=== PATIENT | female | born 1995 | race Caucasian/White ===

== ENCOUNTER 2020-03-07 05:32 | Emergency (ER) | payer SELFPAY ==
[2020-03-07 05:34] VITALS: BP 105/69; PULSE 80; RESP 17; TEMP 36.9; O2SAT 100; BMI 17.9
[2020-03-07 06:13] VITALS: BP 102/60; PULSE 72; RESP 18; O2SAT 99
--- NOTE | 2020-03-07 06:18 | W.ED.PREGNAN ---
HPI - General: Chief complaint: OB/Uterine Contractions Stated complaint: 8-12 weeks /cramps Time Seen by Provider: 03/07/20 06:02 History of Present Illness: HPI Narrative: 25-year-old female presents to the emergency room with complaint of cramping. she reports she is 8 to 12 weeks gestation. She had cramping last night. She denies having any pain now. Patient is G1, P0 her LMP was 12/22/19. Patient is not having any symptoms now. Initial lab work was ordered based on her presenting complaint including a serum quantitative beta-hCG to evaluate patient is refusing all lab work insisting on ultrasound only. She denies any other illness at this time. Patient denies any respiratory problems. MD Complaint: vaginal bleeding Date of Last Menstrual Period: 12/27/19 Associated symptoms: Deny abdominal pain, dysuria, malaise, nausea or vomiting Review of Systems Const: Denies: fever(s), chills, body aches, change in appetite, fatigue or malaise ENMT: Denies: throat pain, ear or mastoid pain, nasal discharge or nasal congestion Card: Denies: chest pain, edema, dyspnea on exertion or orthopnea Resp: Denies: dyspnea, productive cough or non-productive cough GI: Denies: abdominal pain, nausea, vomiting, hematemesis, coffee ground emesis, diarrhea, constipation, bloating, hematochezia or melena : Denies: flank pain, difficulty voiding, dysuria, urinary frequency or urinary urgency Skin/Breast: Denies: rash or pruritus PFS ED PFSH: Surgical History (Updated 03/07/20 @ 06:31 by Devon Grigsby DO) Hx of appendectomy Social History (Updated 03/07/20 @ 06:31 by Devon Grigsby DO) Smoking and tobacco status: never smoked Alcohol intake: never Female Reproductive History: Date of last menstrual period: 12/27/19 Physical Exam Const: COMMON NORMALS: average body habitus, patient oriented x3 and alert GENERAL APPEARANCE: cooperative, comfortable, well kempt and well developed NUTRITIONAL APPEARANCE: obese ORIENTATION/CONSCIOUSNESS: Yes awake, Yes oriented to person and Yes oriented to place Eye: COMMON NORMALS: Equal, round and reactive pupils present, EOMs intact bilaterally, conjunctivae normal and no scleral icterus CONJUNCTIVA: Yes conjunctivae normal PUPIL: Yes Equal, round and reactive pupils present Neck/C-Spine: COMMON NORMALS: full ROM, no lymphadenopathy, supple, no meningeal signs and Thyroid normal THYROID: Thyroid normal and asymmetrical Lymph: LYMPHATIC: no lymphadenopathy noted Resp: COMMON NORMALS: normal respiratory effort, No retractions, No use of accessory muscles and clear to auscultation bilaterally AUSCULTATION: clear to auscultation bilaterally Cardio: COMMON NORMALS: regular rate and regular rhythm RATE: regular rate RHYTHM: regular rhythm HEART SOUNDS: no murmurs GI: COMMON NORMALS: Normal to inspection, nondistended, normoactive bowel sounds present, Soft to palpation and No hepatosplenomegaly present PALPATION: Yes Soft to palpation and Yes No hepatosplenomegaly present : COMMON NORMALS: Yes no CVA tenderness BLADDER/KIDNEY EXAM: Yes no CVA tenderness Back/Pelvis: COMMON NORMALS: no CVA tenderness LUMBAR SPINE/LOWER BACK: Yes normal to inspection Extremity: COMMON NORMALS: no clubbing, cyanosis or edema, no calf tenderness and no pedal edema Neuro: COMMON NORMALS: patient oriented x3 SENSORIUM/ORIENTATION: Yes alert, Yes oriented to person and Yes oriented to place MENINGEAL SIGNS: Yes no meningeal signs Psych: APPEARANCE: Yes well kempt Skin: COMMON NORMALS: no rashes or lesions noted and turgor normal GENERAL SKIN EXAM: no rashes or lesions noted and turgor normal Course Vital Signs: Vital signs: Vital Signs Temperature 98.4 F 03/07/20 05:34 Pulse Rate 72 03/07/20 06:13 Respiratory Rate 18 03/07/20 06:13 Blood Pressure 102/60 03/07/20 06:13 Pulse Oximetry 99 03/07/20 06:13 MDM - OB/Uterine Contractions MDM Narrative: Medical decision making narrative: Patient insistent that the only work she has done is an ultrasound. Advised her we would first need to have at least a serum or urine quantitative beta-hCG of prefer serum quantitative beta-hCG since she is having abdominal pain since we need to evaluate for whether or not she has intrauterine . Then we can decide what level of ultrasound would need to be done most appropriately. She is not okay with this and chooses to leave AGAINST MEDICAL ADVICE. Did advise her that if she has abdominal pain due to ectopic that could be potentially life-threatening she states she understands and wishes to leave AMA. Patient advised she is free to return to the emergency room at any point if she has worsening pain or problems or wishes to have it appropriate evaluation completed. Discharge Plan Discharge Patient Disposition: Left Against Medical Advice Clinical Impression: First trimester , Pelvic pain affecting Activity Restrictions/Additional Instructions: Patient advised she is free to return to the emergency room if she has any further problems. Interventions: ED Discharge Assessment Last Done: 03/07/20 06:31 ED Charges Last Done: 03/07/20 06:31 Discharge Date/Time: 03/07/20 06:32 Coding Level of Care Code ED Multimedia Journalist for Demondg Fwd Exam Comprehensive
--- NOTE | 2020-03-07 06:21 | PC.NURSE ---
Patient refusing labs until speaking with .
--- NOTE | 2020-03-07 06:29 | PC.NURSE ---
'Dr. Grigsby talked with patient and advised that the test that he ordered was needed to determine what was going on. Patient is going to leave AMA and not getting any of these tests. Dr. Grigsby advised patient of risks of leaving AMA and patient stated that she was not worried about all that and stated she would find a different doctor that would not require all these tests.
== END 2020-03-07 06:32 | disposition left against medical advice (07) ==
PROVIDERS: Emergency Provider Family Medicine
DX: O26.891 Other specified pregnancy related conditions, first trimester (principal); R10.2 Pelvic and perineal pain; Z3A.08 8 weeks gestation of pregnancy; Z53.21 Procedure and treatment not carried out due to patient leaving prior to being seen by health care provider
CPT/HCPCS: 12345; 96360; 99281; 99283

== ENCOUNTER 2020-03-13 00:08 | Emergency (ER) | payer SELFPAY ==
[2020-03-13 00:23] VITALS: BP 114/80; PULSE 68; RESP 14; TEMP 36.8; O2SAT 100; BMI 17.6
[2020-03-13 00:46] LABS: Add Urine Microscopic? NO
[2020-03-13 00:53] LABS: HCG Qualitative Urine. Positive (Negative); Urine Appearance Clear (CLEAR); Urine Color Straw (Yellow)
[2020-03-13 00:54] LABS: Bilirubin Urine Neg (NEGATIVE); Blood Urine Neg (Negative); Glucose Urine UA Norm (Normal); Ketones Urine Negative (Negative); Leukocyte Esterase Urine Negative (Negative); Nitrate Urine Negative (Negative); Protein Urine Neg (Negative); Specific Gravity, Urine 1.005 (1.005-1.030); Urobilinogen Urine Norm (Negative); pH Urine 5 (5-7)
--- NOTE | 2020-03-13 02:44 | USR_ITS ---
PROCEDURE INFORMATION: Exam: US First Trimester, Transabdominal Exam date and time: 03/13/2020 3:50 AM Age: 25 years old Clinical indication: complicated by abdominal or pelvic pain; Lower; First trimester; Gestational age or lmp: 8w1d; ; Additional info: Abd pain. Patient reportedly suspects approximately 12 weeks gestation. LMP 12/22/2019. The Patient reports abdominal pain for 1 week, no vaginal bleeding. TECHNIQUE: Imaging protocol: Real-time transabdominal obstetrical ultrasound of the maternal pelvis and a first trimester , less than 14 weeks 0 days, with image documentation. COMPARISON: CT No relevant prior studies available. FINDINGS: There is an intrauterine gestational sac, containing a yolk sac and small pole. [place] rump length of 16-17 mm, estimates gestational age of 8 weeks, 1 day. However, no heart activity is identified by the technologist, and no heart activity is identified on the provided M-mode images. heart activity should usually be identified by gestational age of approximately six weeks, and should definitely be identified with a crown-rump length of greater than 7 mm. Therefore, this appearance is felt to be most compatible with a missed AB/ demise. Very small cyst in the right ovary, measuring 10 x 5 x 9 mm mm, possibly corpus luteum. Maternal ovaries/adnexa otherwise appear essentially unremarkable. Blood flow detected in each ovary. The urinary bladder was not completely evaluated/imaged at this time. US/US OB <= 14 weeks fetus [id number] IMPRESSION: 1. Appearance compatible with a missed AB/ demise, see details above. 2. Other details discussed above.
[2020-03-13 03:08] LABS: Basophils % 0.3 %; Eosinophils # 0.1 10^3/uL (0.0-0.8); Eosinophils % 0.7 %; Hematocrit 31.3 % (37.0-47.0); Hemoglobin 10.8 g/dL (11.5-15.3); Lymphocytes # 2.6 10^3/uL (0.8-4.8); Lymphocytes % 36.9 %; Mean Corpuscular HGB Conc 34.5 g/dL (30.0-36.0); Mean Corpuscular Hemoglobin 30.6 pg (28.0-34.0); Mean Corpuscular Volume 88.7 fL (81-99); Monocytes # 0.7 10^3/uL (0.2-0.9); Monocytes % 9.3 %; Neutrophils # 3.75 10^3/uL (1.8-7.7); Neutrophils % 52.5 %; Nucleated Red Blood Cells % 0 %; Platelet Count 220 10^3/cmm (130-400); Red Blood Count 3.53 10^6/uL (4.1-5.3); Red Cell Distribution Width 11.6 % (12.1-15.1); White Blood Count 7.1 10^3/uL (4.0-10.0)
[2020-03-13 03:32] LABS: Alanine Aminotransferase 11 U/L (0-33); Albumin Level 4.6 g/dL (3.5-5.2); Alkaline Phosphatase 41 IU/L (35-105); Anion Gap 15.3 (5-19); Aspartate Amino Transferase 18 U/L (0-32); Blood Urea Nitrogen 5 mg/dL (6-20); Calcium 9.5 mg/dL (8.5-10.5); Carbon Dioxide 21 mmol/L (22-29); Chloride 103 mmol/L (98-107); Creatinine Clr Calc Pharmacy 168.2916; Globulin 2.7 g/dL (1.3-4.6); Glomerular Filtration Rate 194.5 mL/min (90-130); Glucose 79 mg/dL (65-115); Osmolality Calculated 277 mOsm/kg (285-295); Potassium 3.3 mmol/L (3.5-5.1); Sodium 136 mmol/L (136-145); Total Bilirubin 0.2 mg/dL (0.15-1.2); Total Protein 7.3 g/dL (6.6-8.7)
[2020-03-13 05:29] VITALS: BP 99/61
--- NOTE | 2020-03-13 05:51 | ED_ITS ---
HPI - Female Genitourinary General: Chief complaint: Urogenital-Female Stated complaint: preg/cramping Time Seen by Provider: 03/13/20 02:10 History of Present Illness: HPI Narrative: 25-year-old female, states that she had her last normal menstrual period around December 26. She has taken multiple tests at home that were positive. She complains of cramping pain for the past week or more. She is felt ill, and generally weak. She denies any fever. She has had a couple episodes of vomiting. She denies any vaginal bleeding or discharge. MD elicited complaint: pelvic pain and possible miscarriage Onset (ago): day(s) Location of symptoms: suprapubic Severity: moderate Female Urogenital Radiation: Non-Radiating Quality of pain: cramping Vaginal discharge: none Vaginal bleeding: none Relieving factors: none Associated symptoms: Reports abdominal pain and nausea; Deny short of breath, fevers/chills, headache(s), rash or seizures Patient : Yes Possible : at home test positive Date of Last Menstrual Period: 12/27/19 Review of Systems Const: Denies: fever(s) or chills Eyes: Denies: change in vision ENMT: Denies: swelling of lips/tongue, change in hearing, epistaxis, post nasal drip or sinus pain Card: Denies: chest pain, palpitations or irregular heart rhythm Resp: Denies: dyspnea, productive cough, non-productive cough or wheezing GI: Reports: abdominal pain and nausea : Denies: dysuria, urinary frequency, urinary urgency or hematuria Musc: Reports: back pain; Denies: neck pain, joint redness or joint warmth Skin/Breast: Denies: rash, pruritus or erythema Neuro: Denies: headache(s), dizziness, vertigo or confusion Psych: Denies: anxiety PFSH ED PFSH: Surgical History (Updated 03/07/20 @ 06:31 by Devon Grigsby DO) Hx of appendectomy Social History (Updated 03/07/20 @ 06:31 by Devon Grigsby DO) Smoking and tobacco status: never smoked Alcohol intake: never Female Reproductive History: Date of last menstrual period: 12/27/19 Physical Exam Const: GENERAL APPEARANCE: well developed ORIENTATION/CONSCIOUSNESS: Yes oriented to person, Yes oriented to place and Yes oriented to time HENMT: COMMON NORMALS: normocephalic, external ears normal and Normal external nose present HEAD & SCALP: normocephalic FACE & SINUS: normal facial exam NOSE: Normal external nose present and No nasal discharge present EXTERNAL EAR: Yes external ears normal THROAT: posterior oropharynx normal; no peritonsillar mass Eye: COMMON NORMALS: Equal, round and reactive pupils present, EOMs intact bilaterally and conjunctivae normal EYELID: eyelids normal CONJUNCTIVA: Yes conjunctivae normal PUPIL: Yes Equal, round and reactive pupils present Neck/C-Spine: GENERAL: No tracheal deviation Chest: COMMONS NORMALS: normal inspection of the chest CHEST: No tenderness Resp: COMMON NORMALS: clear to auscultation bilaterally EFFORT & INSPECTION: No tachypneic, No respiratory distress, No retractions, No uses accessory muscles and No tracheal deviation AUSCULTATION: clear to auscultation bilaterally, no rhonchi, no wheezes and lung sounds not diminished Cardio: COMMON NORMALS: regular rate and regular rhythm RATE: regular rate RHYTHM: regular rhythm HEART SOUNDS: no murmurs PERIPHERAL PULSES: radial pulses present GI: INSPECTION: No abdominal distension AUSCULTATION: No Hyperactive bowel sounds present and No Hypoactive bowel sounds present PALPATION: Yes Tenderness to palpation present (GI) (Suprapubic), No Guarding due to palpation present (GI) and No Rigid due to palpation Neuro: SENSORIUM/ORIENTATION: Yes oriented to person, Yes oriented to place and Yes oriented to time Psych: COMMON NORMALS: mental status grossly normal Skin: COMMON NORMALS: no rashes or lesions noted GENERAL SKIN EXAM: no rashes or lesions noted Course Consultations: Consultation #1: albino Vital Signs: Vital signs: Vital Signs Temperature 98.2 F 03/13/20 00:23 Pulse Rate 68 03/13/20 00:23 Respiratory Rate 14 03/13/20 00:23 Blood Pressure 99/61 03/13/20 05:29 Pulse Oximetry 100 03/13/20 00:23 MDM - Female [facility] Narrative: Medical decision making narrative: 25-year-old G1, P0 female at around 9 weeks by dates. She reports cramping pain over the last week and feeling ill. Her potassium is mildly low. Bicarbonate is mildly low. Hemoglobin is 10.8. No leukocytosis. Quantitative hCG is 219,000. By ultrasound she has a 8-week 1 day fetus with no cardiac activity. Indicating demise or incomplete/missed . I am concerned that her high beta- hCG and her low blood count. She is frail. Spoke with Dr. Berkowitz for close outpatient follow-up. She will call the clinic on Saturday for an appointment, and case management has been notified. Lab Data: Labs: Lab Results 03/13/20 03/13/20 03/13/20 Range/Units 00:35 00:35 02:50 WBC 7.1 (4.0-10.0) 10^3/ uL RBC 3.53 L (4.1-5.3) 10^6/u L Hgb 10.8 L (11.5-15.3) g/dL Hct 31.3 L (37.0-47.0) % MCV 88.7 (81-99) fL MCH 30.6 (28.0-34.0) pg MCHC 34.5 (30.0-36.0) g/dL RDW 11.6 L (12.1-15.1) % Plt Count 220 (130-400) 10^3/c mm MPV 11.0 H (7.4-10.4) fL Neut % (Auto) 52.5 % Lymph % (Auto) 36.9 % [place] % (Auto) 9.3 % Eos % (Auto) 0.7 % Baso % (Auto) 0.3 % Neut # (Auto) 3.75 (1.8-7.7) 10^3/u L Lymph # (Auto) 2.6 (0.8-4.8) 10^3/u L [place] # (Auto) 0.7 (0.2-0.9) 10^3/u L Eos # (Auto) 0.1 (0.0-0.8) 10^3/u L Baso # (Auto) 0.0 (0.0-0.1) 10^3/u L Nucleated RBC % (a uto) 0 % Nucleated RBCs # 0.0 /100WBC Sodium (136-145) mmol/L Potassium (3.5-5.1) mmol/L Chloride (98-107) mmol/L Carbon Dioxide (22-29) mmol/L Anion Gap (5-19) BUN (6-20) mg/dL Creatinine (0.5-0.9) mg/dL GFR Calculation (90-130) mL/min Glucose (65-115) mg/dL Calculated Osmolal ity (285-295) mOsm/k g Calcium (8.5-10.5) mg/dL Total Bilirubin (0.15-1.2) mg/dL AST (0-32) U/L ALT (0-33) U/L Alkaline Phosphata se (35-105) IU/L Total Protein (6.6-8.7) g/dL Albumin (3.5-5.2) g/dL Globulin (1.3-4.6) g/dL HCG, Qual Positive H (Negative) Ser , José Miguel i-Qnt mIU/mL Urine Color Straw (Yellow) Urine Appearance Clear (CLEAR) Urine pH 5 (5-7) Ur Specific Gravit y 1.005 (1.005-1.030) Urine Protein Neg (Negative) Urine Glucose (UA) Norm (Normal) Urine Ketones Negative (Negative) Urine Blood Neg (Negative) Urine Nitrate Negative (Negative) Urine Bilirubin Neg (NEGATIVE) Urine Urobilinogen Norm (Negative) mg/dL Ur Leukocyte Sivan ase Negative (Negative) Blood Type Rho(D) Type 03/13/20 03/13/20 Range/Units 02:50 02:50 WBC (4.0-10.0) 10^3/ uL RBC (4.1-5.3) 10^6/u L Hgb (11.5-15.3) g/dL Hct (37.0-47.0) % MCV (81-99) fL MCH (28.0-34.0) pg MCHC (30.0-36.0) g/dL RDW (12.1-15.1) % Plt Count (130-400) 10^3/c mm MPV (7.4-10.4) fL Neut % (Auto) % Lymph % (Auto) % [place] % (Auto) % Eos % (Auto) % Baso % (Auto) % Neut # (Auto) (1.8-7.7) 10^3/u L Lymph # (Auto) (0.8-4.8) 10^3/u L [place] # (Auto) (0.2-0.9) 10^3/u L Eos # (Auto) (0.0-0.8) 10^3/u L Baso # (Auto) (0.0-0.1) 10^3/u L Nucleated RBC % (a uto) % Nucleated RBCs # /100WBC Sodium 136 (136-145) mmol/L Potassium 3.3 L (3.5-5.1) mmol/L Chloride 103 (98-107) mmol/L Carbon Dioxide 21 L (22-29) mmol/L Anion Gap 15.3 (5-19) BUN 5 L (6-20) mg/dL Creatinine 0.4 L (0.5-0.9) mg/dL GFR Calculation 194.5 H (90-130) mL/min Glucose 79 (65-115) mg/dL Calculated Osmolal ity 277 L (285-295) mOsm/k g Calcium 9.5 (8.5-10.5) mg/dL Total Bilirubin 0.2 (0.15-1.2) mg/dL AST 18 (0-32) U/L ALT 11 (0-33) U/L Alkaline Phosphata se 41 (35-105) IU/L Total Protein 7.3 (6.6-8.7) g/dL Albumin 4.6 (3.5-5.2) g/dL Globulin 2.7 (1.3-4.6) g/dL HCG, Qual (Negative) Ser , José Miguel i-Qnt 284201.00 mIU/mL Urine Color (Yellow) Urine Appearance (CLEAR) Urine pH (5-7) Ur Specific Gravit y (1.005-1.030) Urine Protein (Negative) Urine Glucose (UA) (Normal) Urine Ketones (Negative) Urine Blood (Negative) Urine Nitrate (Negative) Urine Bilirubin (NEGATIVE) Urine Urobilinogen (Negative) mg/dL Ur Leukocyte Sivan ase (Negative) Blood Type O Positive Rho(D) Type Positive Discharge Plan Discharge Patient Disposition: Home, Self-Care Clinical Impression: Incomplete Condition: Stable Prescriptions: New Zofran 4 mg tablet 4 mg PO Q6H PRN (Reason: nausea and vomiting) Qty: 10 RF: 0 [place] 5-325 mg tablet 1 tab PO Q6H PRN (Reason: pain) Qty: 10 RF: 0 Discharge Orders: Discharge Order (Routine); Ordered 03/13/20 Ordered By: Ameya Montalvo Referrals: Ilia Berkowitz MD [Physician] - 1-3 days Discharge Diet: Advance as tolerated Discharge Activity: Increase activity as tolerated Patient Instructions: Spontaneous Miscarriage (ED) Activity Restrictions/Additional Instructions: Return for fever greater than 100. Return for vomiting liquids or medications despite treatment. Return for worsening belly pain despite treatment. Return for heavy bleeding, passing large clots, soaking more than 1 pad per hour for more than 3 to 4 hours. Follow-up with the [facility] by calling on Saturday. Tell them we spoke with Dr. Berkowitz. Coding Level of Care Code ED Value Stream Coach for Batsheva Solis
--- NOTE | 2020-03-14 08:37 | DCPLANNER ---
manager risk had message to schedule a follow up appointment for patient with [facility]. manager risk called the [facility], spoke with Ana, gave clinic patients information. Clinic will call rehabilitation caseworker and patient with appointment information.
--- NOTE | 2020-03-15 08:12 | DCPLANNER ---
Patient has a follow up appointment scheduled for Sunday, March 15, [address] at 9:[address] Berkowitz. Clinic will call patient with appointment information.
--- NOTE | 2020-03-16 15:11 | DCPLANNER ---
Patient did attend appointment scheduled for 03.15.20 with [facility].
== END 2020-03-13 06:00 | disposition home or self-care (01) ==
PROVIDERS: Emergency Provider Emergency Medicine
DX: O03.4 Incomplete spontaneous abortion without complication (principal)
CPT/HCPCS: 12345; 76801; 80053; 81003; 81025; 84702; 85025; 86900; 99282; 99283

== ENCOUNTER 2020-03-29 23:32 | Emergency (ER) | payer SELFPAY ==
[2020-03-29 23:37] VITALS: BP 110/72; PULSE 74; RESP 16; TEMP 37; O2SAT 100; BMI 17.6
--- NOTE | 2020-03-29 23:48 | ED_ITS ---
HPI - General: Chief complaint: Vaginal Bleeding Stated complaint: bleeding, dizzy Time Seen by Provider: 03/29/20 23:39 Source: patient Mode of arrival: ambulatory Limitations: no limitations History of Present Illness: HPI Narrative: Patient is a 25-year-old female here for evaluation of vaginal bleeding after taking Cytotec. Patient was seen in the emergency department on 03/13 and diagnosed with a missed/incomplete based on an ultrasound that showed- single intrauterine gestational sac with yolk sac and pole measuring 17 mm consistent with of 8 weeks and 1 day. No cardiac activity noted consistent with missed . Right ovarian simple cyst measuring 1 x 0.5 x 0.9 cm likely corpus luteum. Otherwise bilateral ovaries appear normal with blood flow Patient was scheduled OB follow-up and saw Dr. Berkowitz on 03/15. At that time patient had requested to try expectant management. She was evaluated by Dr. Hanna a week later and still requested expectant management. She was counseled on that visit on other treatment options including induction with Cytotec and D&C. She was told to contact the office next week if she had changed her mind on management. Patient tells me today that she was prescribed Cytotec and took this medication around 11 AM this afternoon. Patient tells me approximately 4 to 5 hours later she began having vaginal bleeding and passing clots/tissue. She reports minimal pelvic cramping. She tells me she did soak several pads however bleeding has seemed to improve upon arrival. Patient states she came to the ED because she was told she needed to for any bleeding that was heavier than 2 pads an hour. Complaint: vaginal bleeding Onset (ago): hour(s) Location: pelvis Severity: mild Quality: Cramping Relieving factors: none Exacerbating factors: medication (cytotec) Vaginal discharge: none Vaginal bleeding: heavy (subsided upon arrival ) and clots Date of Last Menstrual Period: 03/29/20 Associated symptoms: Deny abdominal pain, dysuria, nausea, vaginal discharge or vomiting Review of Systems Const: Denies: fever(s) GI: Denies: abdominal pain, nausea, vomiting, diarrhea or change in bowel habits : Reports: vaginal bleeding (with clots/tissue) and pelvic pain (very mild cramping); Denies: flank pain, difficulty voiding, dysuria, urinary frequency, urinary urgency, urinary hesitancy, hematuria, genital lesions, genital pruritis, vaginal odor or vaginal discharge Musc: Denies: back pain PFSH ED PFSH: Medical History (Updated 03/30/20 @ 00:31 by VIVIANA Marie) No pertinent past medical history Denies: hypertension, hypercholesterolemia, heart, lung, liver, thyroid problems, diabetes, DVT/PE. PCP: None Surgical History S/P appendectomy 2014---laparoscopic procedure performed in [facility] Family History Denies family history of Colon cancer Ovarian cancer Diabetes Clotting disorder Heart disease Hyperlipidemia Breast cancer Anesthesia complication Bleeding disorder Hypertension Uterine cancer Thyroid condition Stroke Social History Smoking and tobacco status: never smoked Alcohol intake: never Additional social history: - Tobacco Use: Denies current or past use Drug Use: Denies Alcohol Use: Has tried alcohol in the past but does not drink on a regular basis Work/Study Status: Currently unemployed. 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 Female Reproductive History: Date of last menstrual period: 03/29/20 Physical Exam Const: COMMON NORMALS: no acute distress, average body habitus, patient oriented x3, no limitations, healthy appearing, alert and well nourished GI: COMMON NORMALS: Normal to inspection, nondistended, normoactive bowel sounds present, Soft to palpation, No hepatosplenomegaly present and no masses PALPATION: Yes Soft to palpation, Yes Tenderness to palpation present (GI) (very mild lower abdominal/pelvic cramping ) and Yes No hepatosplenomegaly present : OB/EXTERNAL & SPECULUM: Deferred OB/external & speculum exam Neuro: COMMON NORMALS: patient oriented x3 SENSORIUM/ORIENTATION: Yes alert Course Vital Signs: Vital signs: Vital Signs Temperature 98.6 F 03/29/20 23:37 Pulse Rate 69 03/30/20 00:36 Respiratory Rate 16 03/30/20 00:36 Blood Pressure 87/53 03/30/20 00:36 Pulse Oximetry 99 03/30/20 00:36 MDM - OB/Uterine Contractions MDM Narrative: Medical decision making narrative: Patient tells me at this time her bleeding is minimal. She reports minimal pelvic cramping. Patient's H&H is higher today than it was on 03/13. hCG has decreased from 219,000 to 68,000. Will have patient follow-up with [facility] so they can assess for ongoing passage/completion of . Return to ED precautions given. Lab Data: Labs: Lab Results 03/29/20 03/29/20 Range/Units 23:40 23:40 WBC 8.8 (4.0-10.0) 10^3/ uL RBC 3.68 L (4.1-5.3) 10^6/u L Hgb 11.3 L (11.5-15.3) g/dL Hct 32.9 L (37.0-47.0) % MCV 89.4 (81-99) fL MCH 30.7 (28.0-34.0) pg MCHC 34.3 (30.0-36.0) g/dL RDW 11.7 L (12.1-15.1) % Plt Count 234 (130-400) 10^3/c mm MPV 11.6 H (7.4-10.4) fL Neut % (Auto) 55.3 % Lymph % (Auto) 33.4 % [place] % (Auto) 10.2 % Eos % (Auto) 0.6 % Baso % (Auto) 0.3 % Neut # (Auto) 4.86 (1.8-7.7) 10^3/u L Lymph # (Auto) 2.9 (0.8-4.8) 10^3/u L [place] # (Auto) 0.9 (0.2-0.9) 10^3/u L Eos # (Auto) 0.1 (0.0-0.8) 10^3/u L Baso # (Auto) 0.0 (0.0-0.1) 10^3/u L Nucleated RBC % (a uto) 0 % Nucleated RBCs # 0.0 /100WBC Ser , José Miguel i-Qnt 43144.00 mIU/mL Discharge Plan Discharge Patient Disposition: Home Clinical Impression: Missed ab Condition: Stable Prescriptions: No Action misoprostol [Cytotec] 200 mcg tablet 600 mcg PO ONCE Qty: 3 RF: 0 Discharge Orders: Discharge Order (Routine); Ordered 03/30/20 Ordered By: Janey Arias Activity Restrictions/Additional Instructions: As discussed you need to contact the women's health clinic to schedule a follow- up visit as soon as possible so they can continue to monitor the progress of your miscarriage. Return to the emergency department for worsening vaginal bleeding, cramping, fevers greater than 100.4, generally feeling ill, or any other concerns you may have. Coding Level of Care Code ED Hotel Baggage Handler for Chg Fwd Exam Expanded Problem Focused
[2020-03-29 23:52] VITALS: BP 102/64; PULSE 69; RESP 16; O2SAT 97
[2020-03-30 00:05] LABS: Basophils % 0.3 %; Eosinophils # 0.1 10^3/uL (0.0-0.8); Eosinophils % 0.6 %; Hematocrit 32.9 % (37.0-47.0); Hemoglobin 11.3 g/dL (11.5-15.3); Lymphocytes # 2.9 10^3/uL (0.8-4.8); Lymphocytes % 33.4 %; Mean Corpuscular HGB Conc 34.3 g/dL (30.0-36.0); Mean Corpuscular Hemoglobin 30.7 pg (28.0-34.0); Mean Corpuscular Volume 89.4 fL (81-99); Mean Platelet Volume 11.6 fL (7.4-10.4); Monocytes # 0.9 10^3/uL (0.2-0.9); Monocytes % 10.2 %; Neutrophils # 4.86 10^3/uL (1.8-7.7); Neutrophils % 55.3 %; Nucleated Red Blood Cells % 0 %; Platelet Count 234 10^3/cmm (130-400); Red Blood Count 3.68 10^6/uL (4.1-5.3); Red Cell Distribution Width 11.7 % (12.1-15.1); White Blood Count 8.8 10^3/uL (4.0-10.0)
[2020-03-30 00:36] VITALS: BP 87/53; PULSE 69; RESP 16; O2SAT 99
[2020-03-30 00:37] VITALS: BP 90/59; PULSE 70; RESP 16; O2SAT 100
--- NOTE | 2020-03-30 08:21 | PC.SOCIAL ---
[facility] Called Clinic and spoke to Yolande who indicates she will send Dr Hanna a message and they will call patient with appt.
--- NOTE | 2020-04-07 15:17 | DCPLANNER ---
software development project manager called [facility], spoke with Jyoti to confirm if an appointment had been scheduled for patient. software development project manager was told that an appointment had been scheduled for patient, but when patient was called to review appointment information, patient wanted to cancel the appointment.
== END 2020-03-30 00:38 | disposition home or self-care (01) ==
PROVIDERS: Emergency Medicine; Emergency Provider Physician Assistant
DX: O02.1 Missed abortion (principal)
CPT/HCPCS: 12345; 36415; 84702; 85025; 99281; 99282

== ENCOUNTER 2020-04-26 17:19 | Emergency (ER) | payer SELFPAY ==
[2020-04-26 17:50] VITALS: BP 119/77; PULSE 70; RESP 18; TEMP 36.9; O2SAT 100; BMI 16.5
--- NOTE | 2020-04-26 18:03 | USR_ITS ---
PROCEDURE INFORMATION: Exam: US Nonobstetric Pelvis; Complete Exam date and time: 04/26/2020 8:23 PM Age: 25 years old Clinical indication: Pelvic pain; Patient HX: Recent miscarriage; Additional info: Vaginal bleeding and cramping TECHNIQUE: Imaging protocol: Transabdominal pelvic nonobstetric ultrasound. Complete exam. Real time ultrasound with image documentation. COMPARISON: CT abdomen pelvis w con* [id number] 04/08/2018 10:22 PM FINDINGS: Uterus/cervix: The uterus measures 11.4 x 5.3 x 6.1 cm. Inhomogenous thickening of the endometrium measuring up to 2.5 cm in the mid and lower uterine segment and a 5 mm cystic structure. There is increased vascularity within the uterus. Right adnexa: The right ovary measures 2.4 x 1.1 x 2.2 cm with normal Doppler flow. Left adnexa: The left ovary measures 1.8 x 2.7 x 2.9 cm with normal Doppler flow. Intraperitoneal space: Trace physiologic fluid. Bladder: Normal. US/US pelvic complete* [id number] IMPRESSION: 1. Inhomogenous material within the endometrial cavity, a 5 mm cystic structure, and increased vascularity in the uterus. This is suspicious for retained products of conception. Clinical correlation with quantitative beta HCG values is recommended.
--- NOTE | 2020-04-26 18:06 | ED_ITS ---
HPI - Abdominal Pain General: Chief Complaint: Abdominal Pain Stated Complaint: abd pain and bleeding Time Seen by Provider: 04/26/20 18:01 History of Present Illness: HPI narrative: Patient is a 25-year-old female who comes to the ED with vaginal bleeding and cramping.patient had a miscarriage back on March 22. Patient was sent home with a Cytotec induction med to progress miscarriage. Patient took Cytotec induction agent and soon after taking its bleeding and abdominal cramping started. Patient was seen here in the ED on March 29 for bleeding and miscarriage and was discharged and told to follow-up with her OB doctor to reassess completion of miscarriage. Patient says that she stopped bleeding a couple days after being discharged from the ED and she felt fine. She has not had any follow-up with her OB doctor since the ED visit. she then said approximately 12 days ago she started having some bleeding and abdominal pain and cramping. It started off light and mild and has progressed and gotten heavier and heavier. She says she has passed several large clots and is constantly bleeding through heavy pads every 15 minutes for the past couple days. Patient rates her pain as a 10 out of 10 and it is episodic. Denies any fever, chills, nausea or vomiting, bladder or bowel symptoms. Associated Symptoms: Denies chills, constipation, diarrhea, dysuria, fever(s), hematochezia, hematuria, nausea and vomiting Related Data: Date of Last Menstrual Period: 04/26/20 Review of Systems 2 Const: Denies: fever(s), chills or fatigue Eyes: Denies: change in vision or eye discomfort ENMT: Denies: throat pain, odynophagia, nasal discharge or nasal congestion Card: Denies: chest pain, palpitations, edema, swelling of feet/ankles, dyspnea on exertion or orthopnea Resp: Denies: dyspnea, productive cough or non-productive cough GI: Reports: abdominal pain (lower abdominal cramping); Denies: nausea, vomiting, diarrhea, constipation or hematochezia : Reports: vaginal bleeding and pelvic pain; Denies: flank pain, dysuria or hematuria Musc: Denies: neck pain, back pain or extremity swelling Skin/Breast: Denies: rash or new lesions Neuro: Denies: headache(s), numbness in extremities or weakness in extremities PFS ED PFSH: Medical History No pertinent past medical history Denies: hypertension, hypercholesterolemia, heart, lung, liver, thyroid problems, diabetes, DVT/PE. PCP: None Surgical History S/P appendectomy 2015---laparoscopic procedure performed in [facility] Family History Denies family history of Colon cancer Ovarian cancer Diabetes Clotting disorder Heart disease Hyperlipidemia Breast cancer Anesthesia complication Bleeding disorder Hypertension Uterine cancer Thyroid condition Stroke Social History Smoking and tobacco status: never smoked Alcohol intake: never Additional social history: - Tobacco Use: Denies current or past use Drug Use: Denies Alcohol Use: Has tried alcohol in the past but does not drink on a regular basis Work/Study Status: Currently unemployed. 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 Female Reproductive History: Date of last menstrual period: 04/26/20 Physical Exam Const: COMMON NORMALS: patient oriented x3, healthy appearing and alert GENERAL APPEARANCE: cooperative and in distress (Patient is having episodes of very intense pain) HENMT: COMMON NORMALS: normocephalic HEAD & SCALP: normocephalic MOUTH: Normal oral and palatal mucosa present THROAT: posterior oropharynx normal and uvula midline Eye: COMMON NORMALS: Equal, round and reactive pupils present PUPIL: Yes Equal, round and reactive pupils present Neck/C-Spine: COMMON NORMALS: supple GENERAL: Yes normal visual inspection Resp: COMMON NORMALS: normal respiratory effort, No retractions, No use of accessory muscles and clear to auscultation bilaterally AUSCULTATION: clear to auscultation bilaterally Cardio: COMMON NORMALS: regular rate, regular rhythm, S1 normal heart sound present, S2 normal heart sound present, No gallops present (Cardio), No clicks present (Cardio), No murmurs present (Cardio) and Peripheral pulses 2+ throughout RATE: regular rate RHYTHM: regular rhythm HEART SOUNDS: S1 normal heart sound present and S2 normal heart sound present PERIPHERAL PULSES: Peripheral pulses 2+ throughout GI: COMMON NORMALS: Normal to inspection, nondistended, normoactive bowel sounds present, Soft to palpation, non-tender and no masses PALPATION: Yes Soft to palpation : COMMON NORMALS: Yes no CVA tenderness BLADDER/KIDNEY EXAM: Yes no CVA tenderness Back/Pelvis: COMMON NORMALS: no CVA tenderness Extremity: COMMON NORMALS: normal to inspection and no pedal edema Neuro: COMMON NORMALS: patient oriented x3 SENSORIUM/ORIENTATION: Yes alert GAIT: Yes Normal gait present Skin: COMMON NORMALS: no rashes or lesions noted GENERAL SKIN EXAM: no rashes or lesions noted and dry skin Course Reevaluation(s): Reevaluation #1: I went and checked on patient to see how pain was doing. Patient was still having episodes of intense abdominal cramping and still having vaginal bleeding and discharge. Patient reports clots clots discharging as well. Time: 19:33 Reevaluation #2: Patient says she passed a larger clot and ever since then her pain has improved greatly.. Time: 20:00 Reevaluation #3: I went in and spoke with patient after Dr. Gillespie saw patient. Dr. Gillespie is good with patient being discharged and having follow-up with Dr. Hanna tomorrow. Dr. Gillespie saw some of the contents that patient passed vaginally while here in the ED. He thought she passed the gestational sac and was okay with patient having close follow-up and can be reevaluated within the next couple days to make sure all contents have been passed. Time: 21:14 Consultations: Consultation #1: I contacted Dr. Gillespie the on-call OB doctor and talk with him about patient's case, labs and ultrasound findings. Dr. Gillespie said he would like to come to the ED and see patient for himself and then he would make on what to do next. Time: 20:33 Vital Signs: Vital signs: Vital Signs Temperature 98.4 F 04/26/20 17:50 Pulse Rate 94 04/26/20 21:32 Respiratory Rate 18 04/26/20 21:32 Blood Pressure 105/63 04/26/20 21:32 Pulse Oximetry 96 04/26/20 21:32 MDM - Abdominal Pain MDM Narrative: Medical decision making narrative: Patient is a 25-year-old female comes to the ED with abdominal pain and vaginal bleeding. Patient had a miscarriage on 03/22 and was given Cytotec induction agent. Patient had a week of bleeding and then it stopped. In the last 12 days patient started having bl eeding again and the bleeding got heavier in the abdominal pain got more severe. Physical exam showed a patient having episodic abdominal cramping pain and she is bleeding through her pants. White blood cell count 10.3, hemoglobin 11.8. hCG is positive and hCG quant was 6125. Her last hCG quant was on 03/29 and it was 268[address]. Ultrasound showed retained products of conception. I contacted Dr. Gillespie and told him about patient and he decided to come into the ED and evaluate the patient himself. After visiting patient Dr. Gillespie thought patient could go home and follow-up with Dr. Hanna tomorrow. Patient's pain is gotten a lot better after she passed a large clot that was possibly gestational sac and sent to lab for testing. Patient was discharged and told to follow-up with Dr. Hanna tomorrow. Patient understood and agreed with plan. Return to ED precautions given. Lab Data: Attestation: I reviewed the patient's lab results. Labs: Lab Results 04/26/20 04/26/20 04/26/20 Range/Units 18:29 18:29 18:29 WBC 10.3 H (4.0-10.0) 10^3/ uL RBC 3.76 L (4.1-5.3) 10^6/u L Hgb 11.8 (11.5-15.3) g/dL Hct 33.9 L (37.0-47.0) % MCV 90.2 (81-99) fL MCH 31.4 (28.0-34.0) pg MCHC 34.8 (30.0-36.0) g/dL RDW 12.0 L (12.1-15.1) % Plt Count 256 (130-400) 10^3/c mm MPV 11.0 H (7.4-10.4) fL Neut % (Auto) 72.7 % Lymph % (Auto) 18.8 % Hamilton % (Auto) 7.5 % Eos % (Auto) 0.3 % Baso % (Auto) 0.3 % Neut # (Auto) 7.52 (1.8-7.7) 10^3/u L Lymph # (Auto) 1.9 (0.8-4.8) 10^3/u L Hamilton # (Auto) 0.8 (0.2-0.9) 10^3/u L Eos # (Auto) 0.0 (0.0-0.8) 10^3/u L Baso # (Auto) 0.0 (0.0-0.1) 10^3/u L Nucleated RBC % (a uto) 0 % Nucleated RBCs # 0.0 /100WBC Sodium 137 (136-145) mmol/L Potassium 3.7 (3.5-5.1) mmol/L Chloride 101 (98-107) mmol/L Carbon Dioxide 23 (22-29) mmol/L Anion Gap 16.7 (5-19) BUN 6 (6-20) mg/dL Creatinine 0.4 L (0.5-0.9) mg/dL GFR Calculation 194.5 H (90-130) mL/min Glucose 107 (65-115) mg/dL Calculated Osmolal ity 280 L (285-295) mOsm/k g Calcium 9.7 (8.5-10.5) mg/dL Total Bilirubin 0.3 (0.15-1.2) mg/dL AST 21 (0-32) U/L ALT 11 (0-33) U/L Alkaline Phosphata se 61 (35-105) IU/L Total Protein 7.9 (6.6-8.7) g/dL Albumin 4.8 (3.5-5.2) g/dL Globulin 3.1 (1.3-4.6) g/dL HCG, Qual Positive H (Negative) Ser , José Miguel i-Qnt 6125.00 mIU/mL Blood Type Rho(D) Type Antibody Screen 04/26/20 Range/Units 18:29 WBC (4.0-10.0) 10^3/ uL RBC (4.1-5.3) 10^6/u L Hgb (11.5-15.3) g/dL Hct (37.0-47.0) % MCV (81-99) fL MCH (28.0-34.0) pg MCHC (30.0-36.0) g/dL RDW (12.1-15.1) % Plt Count (130-400) 10^3/c mm MPV (7.4-10.4) fL Neut % (Auto) % Lymph % (Auto) % Hamilton % (Auto) % Eos % (Auto) % Baso % (Auto) % Neut # (Auto) (1.8-7.7) 10^3/u L Lymph # (Auto) (0.8-4.8) 10^3/u L Hamilton # (Auto) (0.2-0.9) 10^3/u L Eos # (Auto) (0.0-0.8) 10^3/u L Baso # (Auto) (0.0-0.1) 10^3/u L Nucleated RBC % (a uto) % Nucleated RBCs # /100WBC Sodium (136-145) mmol/L Potassium (3.5-5.1) mmol/L Chloride (98-107) mmol/L Carbon Dioxide (22-29) mmol/L Anion Gap (5-19) BUN (6-20) mg/dL Creatinine (0.5-0.9) mg/dL GFR Calculation (90-130) mL/min Glucose (65-115) mg/dL Calculated Osmolal ity (285-295) mOsm/k g Calcium (8.5-10.5) mg/dL Total Bilirubin (0.15-1.2) mg/dL AST (0-32) U/L ALT (0-33) U/L Alkaline Phosphata se (35-105) IU/L Total Protein (6.6-8.7) g/dL Albumin (3.5-5.2) g/dL Globulin (1.3-4.6) g/dL HCG, Qual (Negative) Ser , José Miguel i-Qnt mIU/mL Blood Type O Positive Rho(D) Type Positive Antibody Screen Negative Imaging Data ^: US OB: Attestation: I personally reviewed and interpreted this imaging study as follows: Radiologist's impression: [address] [address] Ultrasound Report Signed Patient: Ginny Wheatley Unit #: [id number] : [id number] Age/Sex: 25 / F ADM Date: 04/26/20 Loc: ER Room/Bed: Attending Dr: Ordering Provider/Ordering MD: Navarro Sims Date of Service: 04/26/20 Procedure(s): US pelvic complete* [id number] Accession Number(s): [id number] Report Number: [id number] PROCEDURE INFORMATION: Exam: US Nonobstetric Pelvis; Complete Exam date and time: 04/26/2020 8:23 PM Age: 25 years old Clinical indication: Pelvic pain; Patient HX: Recent miscarriage; Additional info: Vaginal bleeding and cramping TECHNIQUE: Imaging protocol: Transabdominal pelvic nonobstetric ultrasound. Complete exam. Real time ultrasound with image documentation. COMPARISON: CT abdomen pelvis w con* [id number] 04/08/2018 10:22 PM FINDINGS: Uterus/cervix: The uterus measures 11.4 x 5.3 x 6.1 cm. Inhomogenous thickening of the endometrium measuring up to 2.5 cm in the mid and lower uterine segment and a 5 mm cystic structure. There is increased vascularity within the uterus. Right adnexa: The right ovary measures 2.4 x 1.1 x 2.2 cm with normal Doppler flow. Left adnexa: The left ovary measures 1.8 x 2.7 x 2.9 cm with normal Doppler flow. Intraperitoneal space: Trace physiologic fluid. Bladder: Normal. US/US pelvic complete* [id number] IMPRESSION: 1. Inhomogenous material within the endometrial cavity, a 5 mm cystic structure, and increased vascularity in the uterus. This is suspicious for retained products of conception. Clinical correlation with quantitative beta HCG values is recommended. Dictated By: Merlin Goodwin Signed By: Merlin Goodwin Signed Date/Time: 04/26/202047 DD/ 45 Discharge Plan Discharge Patient Disposition: Home Clinical Impression: Incomplete Condition: Stable Prescriptions: No Action No Known Home Medications RF: 0 Discharge Orders: Discharge Order (Routine); Ordered 04/26/20 Ordered By: Navarro Sims Discharge Diet: Regular Discharge Activity: Increase activity as tolerated Patient Instructions: Spontaneous Miscarriage (ED) Activity Restrictions/Additional Instructions: Follow-up with medical provider as directed by Dr. Gillespie. Contact Dr. Hanna tomorrow to set up a follow up appointment. Take ibuprofen or Tylenol for pain. Return to the ER or your medical provider if condition worsens. Please read and understand discharge instructions. If any questions, please ask. Discharge Date/Time: 04/26/20 21:34 Coding Level of Care Code ED Cost Control Specialist for Chg Fwd Exam Comprehensive
[2020-04-26] MEDS: sodium chloride 0.9% 1,000 ML 999 ML IV (18:37)
[2020-04-26] MEDS: ondansetron 2 mg/ML SDV 2 mL 4 MG IVP (18:38)
[2020-04-26 18:39] VITALS: RESP 19
[2020-04-26] MEDS: morphine 4 mg/mL SDV 1 mL IVP (18:39)
[2020-04-26 18:42] VITALS: PULSE 75; RESP 18; O2SAT 100
[2020-04-26 18:49] LABS: Basophils % 0.3 %; Eosinophils % 0.3 %; Hematocrit 33.9 % (37.0-47.0); Hemoglobin 11.8 g/dL (11.5-15.3); Lymphocytes # 1.9 10^3/uL (0.8-4.8); Lymphocytes % 18.8 %; Mean Corpuscular HGB Conc 34.8 g/dL (30.0-36.0); Mean Corpuscular Hemoglobin 31.4 pg (28.0-34.0); Mean Corpuscular Volume 90.2 fL (81-99); Monocytes # 0.8 10^3/uL (0.2-0.9); Monocytes % 7.5 %; Neutrophils # 7.52 10^3/uL (1.8-7.7); Neutrophils % 72.7 %; Nucleated Red Blood Cells % 0 %; Platelet Count 256 10^3/cmm (130-400); Red Blood Count 3.76 10^6/uL (4.1-5.3); White Blood Count 10.3 10^3/uL (4.0-10.0)
[2020-04-26 18:55] LABS: HCG, Serum Qual Positive (Negative)
[2020-04-26 19:09] LABS: Alanine Aminotransferase 11 U/L (0-33); Albumin Level 4.8 g/dL (3.5-5.2); Alkaline Phosphatase 61 IU/L (35-105); Anion Gap 16.7 (5-19); Aspartate Amino Transferase 21 U/L (0-32); Blood Urea Nitrogen 6 mg/dL (6-20); Calcium 9.7 mg/dL (8.5-10.5); Carbon Dioxide 23 mmol/L (22-29); Chloride 101 mmol/L (98-107); Globulin 3.1 g/dL (1.3-4.6); Glomerular Filtration Rate 194.5 mL/min (90-130); Glucose 107 mg/dL (65-115); Osmolality Calculated 280 mOsm/kg (285-295); Potassium 3.7 mmol/L (3.5-5.1); Sodium 137 mmol/L (136-145); Total Bilirubin 0.3 mg/dL (0.15-1.2); Total Protein 7.9 g/dL (6.6-8.7)
[2020-04-26 19:19] VITALS: RESP 24
[2020-04-26] MEDS: morphine 4 mg/mL SDV 1 mL 2 MG IVP (19:19)
--- NOTE | 2020-04-26 21:12 | PM.OBGYCN ---
Providers/Reason for Consult Consulting Physican/Specialty*: Morgan Gillespie MD, sales porter Reason for Consult*: Incomplete miscarriage Primary YARD ENGINEER: Dr. Anabell Hanna YARD ENGINEER Consult HPI History of Present Illness Ginny Wheatley is a 25 year old female, 1, para 0 with an LMP of 12/22/2019 and an EDC of 09/27/2020, which placed her at 18-0/7 weeks gestation today. Patient had been evaluated in the ER on 03/13/2020 by ultrasound due to cramping and was found to have a demise. She was 11-5/7 weeks gestation at that time by LMP with an 8-1/7-week size fetus with no cardiac activity noted on ultrasound. She was seen in the office by Dr. Berkowitz on 03/15/2020 and given the options of D&C, medications to bring on the miscarriage, or expectant management. Patient had decided at that time to wait and see if things would pass on their own. She followed up in the office on 03/[address] Hanna and at that time, nothing had passed. Options were again discussed with her and she decided to wait another week to see if it would pass. She contacted the office on 03/28, and had still not passed the . At that point, she decided she wanted to try medications. Dr. Hanna prescribed 600 mcg of Cytotec orally, which patient took on 03/28. She then presented to the ER on 03/29 reporting heavy bleeding. Quantitative hCG had dropped by that time and it was felt that she most likely had passed the . She stated the bleeding eventually stopped. She reported that she started having bleeding again on 04/14 which was period-like in amount and as a result she thought she started her period at that time. She stated that her bleeding had continued and became heavier this evening. She also reported that she started cramping this afternoon and it was so bad that she decided to come to the ER. Patient reports that while in the ER, she passed out a bunch of clots and a saclike structure. This was prior to the ultrasound. She stated that she had put this in the trash in her room. She stated the bleeding had slowed following this and that her pain had almost gone away. At this point, she is requesting to go home. Review of Systems Const: Denies: fever(s) or chills ENMT: Denies: throat pain or nasal congestion Card: Denies: chest pain, palpitations or lightheadedness Resp: Denies: dyspnea, productive cough, non-productive cough or wheezing GI: Reports: abdominal pain; Denies: nausea or vomiting : Reports: vaginal bleeding; Denies: dysuria or genital pruritis Musc: Reports: back pain (low) Neuro: Denies: dizziness Psych: Denies: anxiety or depression Wilfredo/Lymph: Denies: easy bruising or easy bleeding Meds/Allergies Home Medications and Allergies Home Medications Medication Instructions Recorded Confirmed Last Taken Type No Known Home Medications 04/26/20 04/26/20 Unknown History Allergies Allergy/AdvReac Type Severity Reaction Status Date / Time No Known Allergies Allergy Verified 04/26/20 20:44 PFSH YARD ENGINEER PFSH: Medical History No pertinent past medical history Denies: hypertension, hypercholesterolemia, heart, lung, liver, thyroid problems, diabetes, DVT/PE. PCP: None Surgical History S/P appendectomy 2014---laparoscopic procedure performed in [facility] Family History Denies family history of Colon cancer Ovarian cancer Diabetes Clotting disorder Heart disease Hyperlipidemia Breast cancer Anesthesia complication Bleeding disorder Hypertension Uterine cancer Thyroid condition Stroke Social History Smoking and tobacco status: never smoked Alcohol intake: never Additional social history: - Tobacco Use: Denies current or past use Drug Use: Denies Alcohol Use: Has tried alcohol in the past but does not drink on a regular basis Work/Study Status: Currently unemployed. 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 Other Female Reproductive History: Hx Age of Menarche: 12 Vitals/I&O/Wt Last Vital Signs Temp 98.4 F 04/26/20 17:50 Pulse 75 04/26/20 18:42 Resp 24 H 04/26/20 19:19 BP 119/77 04/26/20 17:50 Pulse Ox 100 04/26/20 18:42 Weight last 48 hrs Weight 90 lb Physical Exam Const: COMMON NORMALS: no acute distress, average body habitus, alert and well nourished GENERAL APPEARANCE: well developed ORIENTATION/CONSCIOUSNESS: Yes oriented to person, Yes oriented to place and Yes oriented to time Neck/C-Spine: COMMON NORMALS: Thyroid normal GENERAL: Yes trachea midline THYROID: Thyroid normal Resp: COMMON NORMALS: normal respiratory effort and clear to auscultation bilaterally AUSCULTATION: clear to auscultation bilaterally Cardio: COMMON NORMALS: regular rate, regular rhythm, No gallops present (Cardio), No murmurs present (Cardio) and No rub (Cardio) RATE: regular rate RHYTHM: regular rhythm GI: COMMON NORMALS: Soft to palpation, No hepatosplenomegaly present and no masses AUSCULTATION: Yes normoactive bowel sounds PALPATION: Yes Soft to palpation, Yes Tenderness to palpation present (GI) (Minimal suprapubic), Yes No hepatosplenomegaly present and No Hernia present : EXTERNAL FEMALE EXAM: No Hernia present Neuro: SENSORIUM/ORIENTATION: Yes alert, Yes oriented to person, Yes oriented to place and Yes oriented to time Psych: COMMON NORMALS: normal affect MOOD & AFFECT: Yes euthymic mood Data Micro: Micro: Microbiology 04/26/20 18:29 Blood Culture - Pr eliminary Blood SPECIMEN [facility] Imaging^: US OB: I personally reviewed and interpreted this imaging study as follows: My impression: Thickened endometrial lining with nonuniform appearance. Hypoechoic area within the cervix region. Compared to prior ultrasound from 03/13/2020, no gestational sac seen. Other Data: Other data: I inspected the tissue that patient had passed. This consisted of a gestational sac with what appeared to be placental tissue along the surface of the sac. The sac was intact. A&P Assessment and plan (1) Complete spontaneous : Patient originally had a missed which was treated with Cytotec on 03/28. Patient thought she had passed the at that time. Based upon findings today, she had not passed the , but has now completed the miscarriage. The second lining at this point most likely represents the typical appearance of the endometrial lining. Since her bleeding has significantly slowed per her report and her cramping is essentially gone, I do not feel that any further treatment is needed at this time. Patient may be discharged to home. I recommend that she contact our office tomorrow morning on 04/[address] Hanna wants to follow-up with her. Questions were answered. Patient is in agreement with this plan of care. Status: Acute Coding Level of Care Code Acute Outside Repairer Special for Chg Fwd Diagnoses Complete spontaneous O03.9
[2020-04-26 21:32] VITALS: BP 105/63; PULSE 94; RESP 18; O2SAT 96
--- NOTE | 2020-04-26 23:15 | PC.NURSE ---
pt still rates pain 10/10, intermittent cramping not alleviated with meds or positioning. MULTIMEDIA AUTHORING SPECIALIST notified. 2mg of morphine adm via IV. Pt still rating pain 10/10. After 20 min of monitoring, pt states she has passed a large clot or something , but now reports no pain. Per Dr Gillespie, pt has passed the placenta, requesting studies to be done on placenta and any products of conception. Per Elvira in Lab, pathology will contact Dr Gillespie in the AM for specific orders
== END 2020-04-26 21:34 | disposition home or self-care (01) ==
PROVIDERS: Emergency Provider Physician Assistant
DX: O03.4 Incomplete spontaneous abortion without complication (principal)
CPT/HCPCS: 12345; 36415; 76856; 80053; 84702; 84703; 85025; 86850; 86900; 87040; 88305; 96361; 96374; 96375; 96376; 99283; 99284; E0352; J2270; J2405; J7030

== ENCOUNTER 2025-01-19 02:40 | Emergency (ER) | payer SELFPAY ==
[2025-01-19 03:06] VITALS: BP 111/64; PULSE 97; TEMP 37.1; O2SAT 98; BMI 20.2
--- NOTE | 2025-01-19 03:32 | ED_ITS ---
HPI - General Adult General: Chief complaint: General Medical Stated complaint: Surger last week both Legs in alot of pain Time Seen by Provider: 01/19/25 03:31 History of Present Illness: Ginny Wheatley presents to the ER with concerns about post-surgical complications following a procedure performed one week ago. The patient reports worsening pain and difficulty walking, along with yellow discoloration and redness at the surgical site. The patient underwent surgery last Saturday. Initially, she experienced significant pain on the first day but was able to walk without problems. By the second day, she no longer required pain medication. However, about two days ago, the patient became more active, including driving for several hours, which may have triggered an increase in symptoms. She now reports being unable to walk to the bathroom and experiencing increased pain. The patient notes hardness and bruising at the surgical site, with the upper leg feeling fine but the lower area causing concern. The affected area is painful to touch. The patient started antibiotics (Bactrim) today, with the first dose at 6 PM and another dose a couple of hours ago. She expresses concern about potential antibiotic resistance. The patient denies any fever or chills at this time. Related Data Home Medications ?Medication ?Instructions ?Recorded ?Confirmed No Known Home Medications 04/26/2005/03 Allergies Allergy/AdvReac Type Severity Reaction Status Date / Time No Known Allergies Allergy Verified 05/17/20 16:22 Review of Systems General: Reports: 10 or more systems reviewed and unremarkable except in HPI and below PFSH ED PFSH: Medical History (Updated 01/19/25 @ 03:36 by Vj Antonio DO) No pertinent past medical history Denies: hypertension, hypercholesterolemia, heart, lung, liver, thyroid problems, diabetes, DVT/PE. PCP: None Surgical History S/P appendectomy 2014---laparoscopic procedure performed in [facility] Family History Denies family history of Colon cancer Ovarian cancer Diabetes Clotting disorder Heart disease Hyperlipidemia Breast cancer Anesthesia complication Bleeding disorder Hypertension Uterine cancer Thyroid disease Stroke Social History Smoking and tobacco/nicotine status: never used tobacco/nicotine Alcohol intake: never Substance/Drug Use: never Additional social history: - Tobacco Use: Denies current or past use Drug Use: Denies Alcohol Use: Has tried alcohol in the past but does not drink on a regular basis Work/Study Status: Currently unemployed. 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 Female Reproductive History: Date of last menstrual period: 12/15/24 Physical Exam Const: COMMON NORMALS: no acute distress, patient oriented x3, healthy appearing, alert and well nourished HENMT: COMMON NORMALS: normocephalic HEAD & SCALP: normocephalic Eye: COMMON NORMALS: EOMs intact bilaterally Neck/C-Spine: COMMON NORMALS: full ROM and supple Resp: COMMON NORMALS: normal respiratory effort, No retractions and clear to auscultation bilaterally AUSCULTATION: clear to auscultation bilaterally Cardio: COMMON NORMALS: regular rate, regular rhythm, No gallops present (Cardio) and No murmurs present (Cardio) RATE: regular rate RHYTHM: regular rhythm GI: COMMON NORMALS: Soft to palpation and non-tender PALPATION: Yes Soft to palpation Extremity: GENERAL: Yes normal exam except as noted and Yes edema (Bilateral calves with erythema and bruising) Neuro: COMMON NORMALS: patient oriented x3 SENSORIUM/ORIENTATION: Yes alert Skin: COMMON NORMALS: no rashes or lesions noted GENERAL SKIN EXAM: no rashes or lesions noted Course Vital Signs: Vital signs: Vital Signs Temperature 98.7 F 01/19/25 03:06 Pulse Rate 97 01/19/25 03:06 Blood Pressure 111/64 01/19/25 03:06 Pulse Oximetry 98 01/19/25 03:06 [facility] - General Adult Medical Decision Making Post-operative complications: Patient underwent surgery one week ago and is now experiencing increased pain, difficulty walking, and concerns about potential infection. There is yellow discoloration and redness at the surgical site, more pronounced on one side. The affected area is warm to touch and slightly tense, but not excessively so. Patient reports initial improvement in pain levels post- surgery, followed by worsening after increased activity 2 days ago. Antibiotics (Bactrim) were started today at 6 PM, with a second dose taken a few hours ago. The current presentation could be consistent with normal post-operative inflammation and healing, but infection cannot be ruled out at this time. - Continue current antibiotic regimen (Bactrim) - Monitor surgical site for: - Expansion of redness beyond marked borders - Increased pain - Fever or chills - If symptoms worsen or do not improve by tomorrow: - Contact surgeon for reassessment - If fever develops: - Return to ER for immediate evaluation - Limit physical activity to avoid exacerbating symptoms - Follow up with surgeon as previously scheduled No radiology studies performed this visit Discharge Plan Discharge Patient Disposition: Home Clinical Impression: Post-operative complication Qualifiers: Surgical complication system/body Area: musculoskeletal system Surgical complication type: unspecified Procedure type: musculoskeletal Qualified Code(s): M96.89 - Other intraoperative and postprocedural complications and disorders of the musculoskeletal system Condition: Stable Prescriptions: No Action No Known Home Medications Discharge Orders: Discharge ED (Routine); Ordered 01/19/25 Ordered By: Vj Law Discharge Diet: Advance as tolerated Discharge Activity: Limit activity as instructed Patient Instructions: Opioid Safety, Pain Management Activity Restrictions/Additional Instructions: Please return to the emergency department with any new or worsening symptoms. Please follow-up with your surgeon as needed for continued symptoms. Print Language: Faroese Coding Level of Care Code ED Business Supervisor for Batsheva Solis
== END 2025-01-19 04:10 | disposition home or self-care (01) ==
PROVIDERS: Emergency Provider General Practice
DX: M96.89 Other intraoperative and postprocedural complications and disorders of the musculoskeletal system (principal)
CPT/HCPCS: 99282

== ENCOUNTER 2025-01-20 00:43 | Emergency (ER) | payer SELFPAY ==
[2025-01-20 00:51] VITALS: BP 103/61; PULSE 104; RESP 18; TEMP 36.3; O2SAT 97
[2025-01-20 01:16] VITALS: BP 107/57; PULSE 90; RESP 16; O2SAT 98
--- NOTE | 2025-01-20 01:54 | USR_ITS ---
PROCEDURE INFORMATION: Exam: US Left Limited Joint or Other Non-Vascular Extremity Structure Exam date and time: 01/20/2025 2:56 AM Age: 29 years old Clinical indication: Other: Postsurgical swelling of the proximal calve on bilateral leg; Prior surgery; Surgery date: 3-7 days post-operative; Surgery type: Cosmetic fat-transfer from thighs and abdomen to the bilateral proximal, medial calf areas. Now ecchymosis bilateral at the donor sites, with pain and palpable hard lumps at the donor sites. TECHNIQUE: Imaging protocol: US left limited joint or other nonvascular extremity structure. Real-time ultrasound with image documentation. Exam focused on the area of clinical interest. COMPARISON: [place] [id number] 01/20/2025 2:22 AM FINDINGS: Soft tissues: Focused ultrasound examination of the soft tissues along the proximal medial right calf and proximal medial left calf, demonstrates prominently hyperechoic heterogeneous tissue, corresponding to history of fat transfer, measuring 4.1 x 2.8 x 4.8 cm on the right, and 4.0 x 1.9 x 3.7 cm on the left. No hyperemia, fluid collection or lymphadenopathy identified. US/US soft tissue/extremity [id number] IMPRESSION: No clear evidence of abnormality.
--- NOTE | 2025-01-20 01:54 | USR_ITS ---
PROCEDURE INFORMATION: Exam: US Duplex Lower Extremity Veins, Bilateral Exam date and time: 01/20/2025 2:22 AM Age: 29 years old Clinical indication: Pain; Leg, lower; Bilateral; Prior surgery; Surgery date: 3-7 days post-operative; Surgery type: Cosmetic fat-transfer surgery from the thighs and abdomen to the medial proximal calf areas one week ago. ; Additional info: Pain and swelling postop rule out dvt TECHNIQUE: Imaging protocol: Real-time duplex ultrasound of the bilateral extremities with 2-D fagan scale, color Doppler flow and spectral waveform analysis including responses to compression and other maneuvers (when performed) with image documentation. Complete exam focused on the lower extremity veins. COMPARISON: US pelvic complete* [id number] 04/26/2020 8:11 PM FINDINGS: Right deep veins: Unremarkable. The common femoral, femoral, proximal profunda femoral and popliteal veins are patent without thrombus. Normal Doppler waveforms. Normal compressibility and/or augmentation response. Left deep veins: Unremarkable. The common femoral, femoral, proximal profunda femoral and popliteal veins are patent without thrombus. Normal Doppler waveforms. Normal compressibility and/or augmentation response. Superficial veins: Greater saphenous veins at the saphenofemoral junctions are patent bilaterally without thrombus. Soft tissues: Unremarkable. US/[place] [id number] IMPRESSION: No evidence of deep vein thrombosis.
--- NOTE | 2025-01-20 01:56 | W.ED.GENADLT ---
HPI - General Adult General: Chief complaint: General Medical Stated complaint: Both Legs worse Post surgery 8 days Time Seen by Provider: 01/20/25 01:06 History of Present Illness: Ginny Wheatley presents with concerns related to complications following a fat transfer surgery performed one week ago. The patient underwent fat transfer from her thighs and stomach to her calves last Saturday. The patient reports worsening pain, redness, and swelling in both calves since the surgery, with symptoms becoming particularly severe in the past two days. She notes difficulty straightening her legs and walking, describing a sensation of her muscles giving out due to pain. The patient mentions that the redness and swelling appear to have improved slightly since yesterday, but she still experiences significant discomfort. She has been in contact with her surgeon daily, sending photos and updates on her condition. Two days ago, the patient reports she may have overdone it by walking around the house and from one place to another, which she believes may have exacerbated her symptoms. She describes a hematoma in her calf, which is particularly painful when touched. The patient also mentions experiencing pain radiating down to her feet. The patient has been prescribed antibiotics by her surgeon but has not started them yet. She has been using ice for pain management and inflammation reduction. The patient expresses concern about her ability to return home due to her current condition and is considering further evaluation with an ultrasound. Related Data Home Medications ?Medication ?Instructions ?Recorded ?Confirmed No Known Home Medications 04/26/20 05/17/20 Allergies Allergy/AdvReac Type Severity Reaction Status Date / Time No Known Allergies Allergy Verified 01/20/25 00:56 Review of Systems General: Reports: 10 or more systems reviewed and unremarkable except in HPI and below PFSH ED PFSH: Medical History (Updated 01/20/25 @ 04:20 by Vj Antonio DO) No pertinent past medical history Denies: hypertension, hypercholesterolemia, heart, lung, liver, thyroid problems, diabetes, DVT/PE. PCP: None Surgical History S/P appendectomy 2014---laparoscopic procedure performed in [facility] Family History Denies family history of Colon cancer Ovarian cancer Diabetes Clotting disorder Heart disease Hyperlipidemia Breast cancer Anesthesia complication Bleeding disorder Hypertension Uterine cancer Thyroid disease Stroke Social History Smoking and tobacco/nicotine status: never used tobacco/nicotine Alcohol intake: never Substance/Drug Use: never Additional social history: - Tobacco Use: Denies current or past use Drug Use: Denies Alcohol Use: Has tried alcohol in the past but does not drink on a regular basis Work/Study Status: Currently unemployed. 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 Physical Exam Const: COMMON NORMALS: no acute distress, patient oriented x3, healthy appearing, alert and well nourished HENMT: COMMON NORMALS: normocephalic HEAD & SCALP: normocephalic Eye: COMMON NORMALS: EOMs intact bilaterally Neck/C-Spine: COMMON NORMALS: full ROM and supple Resp: COMMON NORMALS: normal respiratory effort, No retractions and clear to auscultation bilaterally AUSCULTATION: clear to auscultation bilaterally Cardio: COMMON NORMALS: regular rate, regular rhythm, No gallops present (Cardio) and No murmurs present (Cardio) RATE: regular rate RHYTHM: regular rhythm GI: COMMON NORMALS: Soft to palpation and non-tender PALPATION: Yes Soft to palpation Extremity: NARRATIVE EXTREMITY EXAM: Significant tenderness to palpation on the proximal medial calves GENERAL: Yes normal exam except as noted and Yes edema (Bilateral calves with erythema and bruising) Neuro: COMMON NORMALS: patient oriented x3 SENSORIUM/ORIENTATION: Yes alert Skin: COMMON NORMALS: no rashes or lesions noted GENERAL SKIN EXAM: no rashes or lesions noted Course Vital Signs: Vital signs: Vital Signs Temperature 97.4 F L 01/20/25 00:51 Pulse Rate 86 01/20/25 04:11 Respiratory Rate 16 01/20/25 04:11 Blood Pressure 99/64 01/20/25 04:11 Pulse Oximetry 99 01/20/25 04:11 MDM - General Adult Medical Decision Making 29-year-old female returns to the emergency department for reevaluation of calf pain. She is status post left fat transplant into her calves. Her exam tonight is improved compared to last night with less swelling and redness. There is still evidence of hematoma on the proximal calf. Ultrasound soft tissue consistent with this finding. No evidence of DVT on ultrasound. Counseled the patient that this pain is likely normal postoperative pain for this procedure. Encouraged her to follow-up with her surgeon for further questions. Return precautions were discussed and she was again discharged home. Lab Data Radiology Impressions Soft Tissue Ultrasound 01/20/25 01:54 IMPRESSION: No clear evidence of abnormality. Venous Duplex 01/20/25 01:54 IMPRESSION: No evidence of deep vein thrombosis. All radiology interpretation(s) finalized by discharge Discharge Plan Discharge Patient Disposition: Home Clinical Impression: Post-operative complication Qualifiers: Surgical complication system/body Area: musculoskeletal system Surgical complication type: unspecified Procedure type: musculoskeletal Qualified Code(s): M96.89 - Other intraoperative and postprocedural complications and disorders of the musculoskeletal system Condition: Stable Prescriptions: No Action No Known Home Medications Discharge Orders: Discharge ED (Routine); Ordered 01/20/25 Ordered By: Vj Law Discharge Diet: Advance as tolerated Discharge Activity: Limit activity as instructed Patient Instructions: Opioid Safety, Pain Management Activity Restrictions/Additional Instructions: Please follow-up with your surgeon regarding your postop pain and swelling. Return to the emergency department with any new or worsening symptoms. Print Language: Sao Tomean Coding Level of Care Code ED Hand I Blocker for Batsheva Solis
[2025-01-20] MEDS: morphine 4 mg/mL SDV 1 mL IM (02:09)
[2025-01-20 03:19] VITALS: BP 113/62; PULSE 82; RESP 16; O2SAT 100
[2025-01-20 04:11] VITALS: BP 99/64; PULSE 86; RESP 16; O2SAT 99
== END 2025-01-20 04:29 | disposition home or self-care (01) ==
PROVIDERS: Emergency Provider General Practice
DX: M96.89 Other intraoperative and postprocedural complications and disorders of the musculoskeletal system (principal)
CPT/HCPCS: 76882; 93970; 96372; 99284; J2270

== ENCOUNTER 2025-01-22 19:00 | Emergency (ER) | payer BC, MEDICAID, SELFPAY ==
[2025-01-22 19:04] VITALS: BP 97/62; PULSE 98; RESP 16; TEMP 36.8; O2SAT 99; BMI 20.2
--- NOTE | 2025-01-22 19:28 | USR_ITS ---
PROCEDURE INFORMATION: Exam: US Right Limited Joint or Other Non-Vascular Extremity Structure Exam date and time: 01/22/2025 8:18 PM Age: 29 years old Clinical indication: Edema is localized; Calf; Right; Prior surgery; Surgery date: <1 month; Surgery type: Patient had liposuction and had the fat injected into her calves; Additional info: Right leg postop swelling to evaluate a lump on her leg. TECHNIQUE: Imaging protocol: US right limited joint or other nonvascular extremity structure. Real-time ultrasound with image documentation. Exam focused on the area of clinical interest. COMPARISON: [place] [id number] 01/20/2025 2:22 AM FINDINGS: Soft tissues: Targeted ultrasound images of soft tissues of the right calf demonstrate heterogeneous mildly hyperechoic areas scattered throughout the soft tissues. Simple area with ill-defined margin and hypoechoic contents measures a proximally 1.4 x 0.6 x 0.8 cm. US/US soft tissue/extremity [id number] IMPRESSION: Targeted ultrasound images of soft tissues of the right calf demonstrate diffuse edema with ill-defined heterogeneous areas. Nonspecific findings may relate to sequela of prior trauma, underlying infectious process or patient's history of prior fat injections.
--- NOTE | 2025-01-22 20:17 | W.ED.EXTPRO ---
HPI - Extremity Problem General: Chief complaint: Extremity Injury, Lower Stated complaint: pain in both calves of legs post surgery Time Seen by Provider: 01/22/25 19:11 History of Present Illness: Beth Wheatley presents to the emergency department for the third time with postoperative complications following a fat transfer procedure. The patient's primary concern is worsening pain and swelling in her right calf, which has progressed to the point where she is unable to walk. The patient reports that she stopped taking her prescribed antibiotics prematurely, believing she did not have an infection. This morning, she experienced severe difficulty walking, prompting her to seek medical attention. She describes significant pain in her right leg, particularly when attempting to bend it. The patient notes that while her left leg has improved and looks great now, the right leg has developed increased redness, swelling, and a tense area that appears larger than during her previous visit. The patient mentions that her surgeon, Dr. Ruano, advised her to come to the emergency department due to concerns about potential internal bleeding. She underwent an ultrasound during a previous visit, which reportedly showed possible internal bleeding. The patient expresses frustration with her current condition, stating, I can't walk on this leg as I used to. Regarding her recent medical history, the patient has been seen in the emergency department three times for this issue. Two to three days ago, both legs exhibited swelling and redness, with the left leg being worse than the right. Now, the right leg is the primary concern with more pronounced symptoms. Related Data Home Medications ?Medication ?Instructions ?Recorded ?Confirmed No Known Home Medications 04/26/20 05/17/20 Allergies Allergy/AdvReac Type Severity Reaction Status Date / Time No Known Allergies Allergy Verified 01/20/25 00:56 Review of Systems General: Reports: 10 or more systems reviewed and unremarkable except in HPI and below PFSH ED PFSH: Medical History (Updated 01/22/25 @ 21:50 by Vj Antonio DO) No pertinent past medical history Denies: hypertension, hypercholesterolemia, heart, lung, liver, thyroid problems, diabetes, DVT/PE. PCP: None Surgical History S/P appendectomy 2014---laparoscopic procedure performed in [facility] Family History Denies family history of Colon cancer Ovarian cancer Diabetes Clotting disorder Heart disease Hyperlipidemia Breast cancer Anesthesia complication Bleeding disorder Hypertension Uterine cancer Thyroid disease Stroke Social History Smoking and tobacco/nicotine status: never used tobacco/nicotine Alcohol intake: never Substance/Drug Use: never Additional social history: - Tobacco Use: Denies current or past use Drug Use: Denies Alcohol Use: Has tried alcohol in the past but does not drink on a regular basis Work/Study Status: Currently unemployed. 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 Female Reproductive History: Date of last menstrual period: 01/22/25 Physical Exam Const: COMMON NORMALS: no acute distress, patient oriented x3, healthy appearing, alert and well nourished HENMT: COMMON NORMALS: normocephalic HEAD & SCALP: normocephalic Eye: COMMON NORMALS: EOMs intact bilaterally Neck/C-Spine: COMMON NORMALS: full ROM and supple Resp: COMMON NORMALS: normal respiratory effort, No retractions and clear to auscultation bilaterally AUSCULTATION: clear to auscultation bilaterally Cardio: COMMON NORMALS: regular rate, regular rhythm, No gallops present (Cardio) and No murmurs present (Cardio) RATE: regular rate RHYTHM: regular rhythm GI: COMMON NORMALS: Soft to palpation and non-tender PALPATION: Yes Soft to palpation Extremity: NARRATIVE EXTREMITY EXAM: Significant tenderness to palpation on the proximal medial calves. Left improved from 2 days ago right has grown in size GENERAL: Yes normal exam except as noted and Yes edema (Bilateral calves with erythema and bruising) Neuro: COMMON NORMALS: patient oriented x3 SENSORIUM/ORIENTATION: Yes alert Skin: COMMON NORMALS: no rashes or lesions noted GENERAL SKIN EXAM: no rashes or lesions noted Course Vital Signs: Vital signs: Vital Signs Temperature 98.2 F 01/22/25 19:04 Pulse Rate 94 01/22/25 22:17 Respiratory Rate 16 01/22/25 22:17 Blood Pressure 118/68 01/22/25 22:17 Pulse Oximetry 100 01/22/25 22:17 Oxygen Delivery Me thod Room Air 01/22/25 22:13 MDM - Extremity (Nontraumatic) Medical Decision Making 29-year-old female presented to the emergency department for reevaluation of leg pain status post fat transfer. Patient's left leg looks significantly better and her right leg looks slightly worse. Discussed with Dr. Ruano the surgeon who recommended ultrasound to rule out abscess. Ultrasound negative for discrete fluid collection. Dr. Ruano has already prescribed the patient Bactrim DS as an antibiotic. Discussed the results of the ultrasound with Dr. Ruano who is in agreement that the patient should continue her antibiotics as this is likely normal postop healing. DVT ruled out 2 days ago. Return precautions discussed with the patient and patient was discharged home in good condition Differential Diagnosis Likely cellulitis, superficial thrombophlebitis, deep venous thrombosis of upper extremity, lower extremity edema and deep vein thrombosis of lower extremity Lab Data Radiology Impressions Soft Tissue Ultrasound 01/22/25 19:28 IMPRESSION: Targeted ultrasound images of soft tissues of the right calf demonstrate diffuse edema with ill-defined heterogeneous areas. Nonspecific findings may relate to sequela of prior trauma, underlying infectious process or patient's history of prior fat injections. All radiology interpretation(s) finalized by discharge Discharge Plan Discharge Patient Disposition: Home Clinical Impression: Post-operative complication Qualifiers: Surgical complication system/body Area: musculoskeletal system Surgical complication type: unspecified Procedure type: musculoskeletal Qualified Code(s): M96.89 - Other intraoperative and postprocedural complications and disorders of the musculoskeletal system Condition: Stable Prescriptions: No Action No Known Home Medications Discharge Orders: Discharge ED (Routine); Ordered 01/22/25 Ordered By: Vj Law Discharge Diet: Advance as tolerated Discharge Activity: Resume usual activity Patient Instructions: Opioid Safety, Pain Management Activity Restrictions/Additional Instructions: Please follow-up with your surgeon for continued pain. Return to the emergency department with any new or worsening symptoms. Print Language: Latvian Coding Level of Care Code ED Archival Records Clerk for Batsheva Solis
[2025-01-22 22:13] VITALS: BP 118/68; PULSE 94; RESP 18; O2SAT 100
[2025-01-22 22:17] VITALS: BP 118/68; PULSE 94; RESP 16; O2SAT 100
== END 2025-01-22 22:19 | disposition home or self-care (01) ==
PROVIDERS: Emergency Provider General Practice
DX: M96.89 Other intraoperative and postprocedural complications and disorders of the musculoskeletal system (principal)
CPT/HCPCS: 76882; 99284

== ENCOUNTER 2025-01-29 11:01 | Emergency (ER) | payer BC, MEDICAID, SELFPAY ==
[2025-01-29 11:14] VITALS: BP 98/58; PULSE 104; RESP 17; TEMP 36.7; O2SAT 97; BMI 20.3
--- NOTE | 2025-01-29 13:49 | W.ED.EXTPRO ---
HPI - Extremity Problem General: Chief complaint: Extremity Problem,Nontraumatic Stated complaint: unable to walk on regular Time Seen by Provider: 01/29/25 11:58 Source: patient Mode of arrival: ambulatory Limitations: no limitations History of Present Illness: Patient is a 29-year-old female presents to ED today with complaint of bilateral calf pain. She states she is status post fat transfer by Dr. Ruano-plastic surgeon in [facility]. She states she has had issues since the surgery. Patient was seen 3 times last week here in our emergency department and had negative soft tissue ultrasounds and DVT ultrasounds. She has yet to follow up with her surgeon because she states she has no ride back to [place]. She denies numbness, tingling, loss of sensation to legs. No fevers. States she has to walk on her tippy toes because she cannot put weight on her heels. She feels like the swelling/erythema has actually improved since last week but pain has not. She reports just finishing a round of antibiotics. She reports no pain at rest. MD Complaint: extremity pain and extremity swelling Onset (ago): week(s) Pain Consistency: constant Location: left, right and lower extremity Quality: burning Radiation: none Relieving factors: immobilization Exacerbating factors: walking Associated symptoms: Reports no associated symptoms; Deny chest pain or fever(s) Context: recent surgery/procedure Related Data Previous Rx's ?Medication ?Instructions ?Recorded sulfamethoxazole 800 2 tab PO BID 7 days #28 tabs 01/29/25 mg-trimethoprim 160 mg tablet (Bactrim DS) Allergies Allergy/AdvReac Type Severity Reaction Status Date / Time No Known Allergies Allergy Verified 01/20/25 00:56 Review of Systems Const: Denies: fever(s), chills, body aches, fatigue or malaise Card: Denies: chest pain Resp: Denies: dyspnea Musc: Reports: extremity pain and extremity swelling; Denies: neck pain, back pain, joint pain, joint swelling or joint redness Skin/Breast: Reports: erythema Neuro: Reports: difficulty walking; Denies: headache(s), numbness in extremities, weakness in extremities or sensory changes [facility] ED PFSH: Medical History No pertinent past medical history Denies: hypertension, hypercholesterolemia, heart, lung, liver, thyroid problems, diabetes, DVT/PE. PCP: None Surgical History S/P appendectomy 2015---laparoscopic procedure performed in [facility] Family History Denies family history of Colon cancer Ovarian cancer Diabetes Clotting disorder Heart disease Hyperlipidemia Breast cancer Anesthesia complication Bleeding disorder Hypertension Uterine cancer Thyroid disease Stroke Social History Smoking and tobacco/nicotine status: never used tobacco/nicotine Alcohol intake: never Substance/Drug Use: never Additional social history: - Tobacco Use: Denies current or past use Drug Use: Denies Alcohol Use: Has tried alcohol in the past but does not drink on a regular basis Work/Study Status: Currently unemployed. 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 Physical Exam Const: COMMON NORMALS: no acute distress, average body habitus, patient oriented x3, no limitations, healthy appearing, alert and well nourished GENERAL APPEARANCE: cooperative Resp: COMMON NORMALS: normal respiratory effort and clear to auscultation bilaterally AUSCULTATION: clear to auscultation bilaterally Cardio: COMMON NORMALS: regular rate and regular rhythm RATE: regular rate RHYTHM: regular rhythm Extremity: GENERAL: Yes normal exam except as noted RIGHT LOWER EXTREMITY: Yes lower leg LEFT LOWER EXTREMITY: Yes lower leg OTHER: bilateral calf regions are edematous, mildly erythematous, and warm to the touch; no fluctuance or lymphangitic streaking; no drainage distally she has intact sensation and normal DP/PT pulses; she has no pain at rest-some degree of pain with palpation and dorsiflexion of the foot Neuro: COMMON NORMALS: patient oriented x3, moves all extremities, no focal motor deficits and no sensory deficits noted SENSORIUM/ORIENTATION: Yes alert Course ED course: Risks of autologous fat transfers (to calf) include: hypersensitivity reaction, prolonged edema, infection, necrosis of the injected fat, injury to the sural nerve, hematoma, seroma, compartment syndrome, fat emboli Consultations: Consultation #1: Dr. Ruano-recommending CBC and US imaging since it has been over a week since she has had imaging; reviewed graphic imaging of her legs Vital Signs: Vital signs: Vital Signs Temperature 98.1 F 01/29/25 11:14 Pulse Rate 85 01/29/25 15:05 Respiratory Rate 17 01/29/25 11:14 Blood Pressure 113/71 01/29/25 15:05 Pulse Oximetry 100 01/29/25 15:05 Oxygen Delivery Me thod Room Air 01/29/25 15:05 MDM - Extremity (Nontraumatic) Medical Decision Making Patient here for continued bilateral calf pain status post fat transfer for aesthetic purposes [address] Ruano. She actually feels like her swelling and redness has improved but her pain persists. She is able to bear weight but has to on her tippy toes. She has no systemic symptoms. No fevers. Her vital signs are stable. Blood work is unremarkable. Normal white count. Ultrasound today showing no drainable fluid collections. Discussed case again with her surgeon in [place]. Recommending placing her back on her Bactrim and he would like to see her as soon as possible should she be able to find a ride back to [place]. She does not have a compartment syndrome. No other life-threatening or emergent etiologies. Medical Records I reviewed the patient's medical records. Lab Data I reviewed the patient's lab results. 01/29/25 14:54 01/29/25 14:54 Radiology Impressions Soft Tissue Ultrasound 01/29/25 14:38 Impression: 1. Negative for cysts, masses or abscess. 2. Minimal subcutaneous fluid of the right calf. Laboratory Results WBC 10.70 10^3/uL (3.29-11.43) 01/29/25 14:54 RBC 3.84 10^6/uL (3.85-5.65) L 01/29/25 14:54 Hgb 11.40 g/dL (11.27-16.99) 01/29/25 14:54 Hct 34.8 % (36-47) L 01/29/25 14:54 MCV 90.6 fl (85-98) 01/29/25 14:54 MCH 29.7 pg (27-33) 01/29/25 14:54 MCHC 32.8 g/dL (30-55) 01/29/25 14:54 RDW 10.8 % (12.1-15.1) L 01/29/25 14:54 Plt Count 368 10^3/cmm (157-399) 01/29/25 14:54 MPV 9.7 fL (7.4-10.4) 01/29/25 14:54 Neut % (Auto) 72.7 % 01/29/25 14:54 Lymph % (Auto) 18.2 % 01/29/25 14:54 Angelina % (Auto) 8.2 % 01/29/25 14:54 Eos % (Auto) 0.1 % 01/29/25 14:54 Baso % (Auto) 0.3 % 01/29/25 14:54 Neut # (Auto) 7.78 10^3/uL (1.8-7.7) H 01/29/25 14:54 Lymph # (Auto) 2.0 10^3/uL (0.8-4.8) 01/29/25 14:54 Angelina # (Auto) 0.9 10^3/uL (0.2-0.9) 01/29/25 14:54 Eos # (Auto) 0.0 10^3/uL (0.0-0.8) 01/29/25 14:54 Baso # (Auto) 0.0 10^3/uL (0.0-0.1) 01/29/25 14:54 Nucleated RBC % (auto) 0 % 01/29/25 14:54 Nucleated RBCs # 0.0 /100WBC 01/29/25 14:54 Sodium 137 mmol/L (136-145) 01/29/25 14:54 Potassium 3.7 mmol/L (3.5-5.1) 01/29/25 14:54 Chloride 100 mmol/L (98-107) 01/29/25 14:54 Carbon Dioxide 21 mmol/L (22-29) L 01/29/25 14:54 Anion Gap 19.7 (5-19) H 01/29/25 14:54 BUN 12 mg/dL (6-20) 01/29/25 14:54 Creatinine 0.5 mg/dL (0.5-0.9) 01/29/25 14:54 GFR Calculation 145.9 mL/min (90-130) H 01/29/25 14:54 Glucose 77 mg/dL (65-115) 01/29/25 14:54 Calculated Osmolality 283 mOsm/kg (285-295) L 01/29/25 14:54 Calcium 9.3 mg/dL (8.5-10.5) 01/29/25 14:54 Total Bilirubin 0.3 mg/dL (0.15-1.2) 01/29/25 14:54 AST 13 U/L (0-32) 01/29/25 14:54 ALT 8 U/L (0-33) 01/29/25 14:54 Alkaline Phosphatase 66 U/L (35-105) 01/29/25 14:54 Total Protein 7.9 g/dL (6.6-8.7) 01/29/25 14:54 Albumin 3.7 g/dL (3.5-5.2) 01/29/25 14:54 Globulin 4.2 g/dL (1.3-4.6) 01/29/25 14:54 All radiology interpretation(s) finalized by discharge Discharge Plan Discharge Patient Disposition: Home Clinical Impression: Pain at surgical site Condition: Stable Prescriptions: New sulfamethoxazole-trimethoprim [Bactrim DS] 800-160 mg tablet 2 tab PO BID 7 Days Qty: 28 0RF Discharge Orders: Discharge ED (Routine); Ordered 01/29/25 Ordered By: Janey Arias Activity Restrictions/Additional Instructions: As we discussed, I encourage you to follow-up with your surgeon as soon as possible. You need to return to the emergency department for worsening pain, swelling, redness, fevers, generally feeling worse or unwell, or any other concerns you may have. Print Language: Khmer Coding Level of Care Code ED Betting Clerk for Batsheva Solis
--- NOTE | 2025-01-29 14:38 | US_ITS ---
WS: [id number] Subcutaneous ultrasound of calf of the posterior right leg, 01/29/2025 Clinical Data: bilateral LE-calf pain; fat transfer; edema/erythema Comparison: Right calf ultrasound, 01/22/2025 Findings: No cysts or masses are seen. There is no evidence of an abscess. There is subcutaneous fluid unchanged. US/US soft tissue/extremity 51285 Impression: 1. Negative for cysts, masses or abscess. 2. Minimal subcutaneous fluid of the right calf.
[2025-01-29 15:02] LABS: Basophils % 0.3 %; Eosinophils % 0.1 %; Hematocrit 34.8 % (36-47); Lymphocytes % 18.2 %; Mean Corpuscular HGB Conc 32.8 g/dL (30-55); Mean Corpuscular Hemoglobin 29.7 pg (27-33); Mean Corpuscular Volume 90.6 fl (85-98); Mean Platelet Volume 9.7 fL (7.4-10.4); Monocytes # 0.9 10^3/uL (0.2-0.9); Monocytes % 8.2 %; Neutrophils # 7.78 10^3/uL (1.8-7.7); Neutrophils % 72.7 %; Nucleated Red Blood Cells % 0 %; Platelet Count 368 10^3/cmm (157-399); Red Blood Count 3.84 10^6/uL (3.85-5.65); Red Cell Distribution Width 10.8 % (12.1-15.1)
[2025-01-29 15:05] VITALS: BP 113/71; PULSE 85; O2SAT 100
[2025-01-29 15:20] LABS: Alanine Aminotransferase 8 U/L (0-33); Albumin Level 3.7 g/dL (3.5-5.2); Alkaline Phosphatase 66 U/L (35-105); Anion Gap 19.7 (5-19); Aspartate Amino Transferase 13 U/L (0-32); Blood Urea Nitrogen 12 mg/dL (6-20); Calcium 9.3 mg/dL (8.5-10.5); Carbon Dioxide 21 mmol/L (22-29); Chloride 100 mmol/L (98-107); Creatinine Clr Calc Pharmacy 137.0832; Globulin 4.2 g/dL (1.3-4.6); Glomerular Filtration Rate 145.9 mL/min (90-130); Glucose 77 mg/dL (65-115); Osmolality Calculated 283 mOsm/kg (285-295); Potassium 3.7 mmol/L (3.5-5.1); Sodium 137 mmol/L (136-145); Total Bilirubin 0.3 mg/dL (0.15-1.2); Total Protein 7.9 g/dL (6.6-8.7)
== END 2025-01-29 16:45 | disposition home or self-care (01) ==
PROVIDERS: Family Medicine; Emergency Provider Physician Assistant
DX: M79.604 Pain in right leg (principal); M79.605 Pain in left leg; Z98.890 Other specified postprocedural states; G89.18 Other acute postprocedural pain
CPT/HCPCS: 36415; 76882; 80053; 85025; 99284